=== PATIENT | male | born 1980 | race Caucasian/White ===

== ENCOUNTER 2024-05-21 21:55 | Emergency (ER) | payer OTHER, SELFPAY ==
--- OUTSIDE RECORDS SUMMARY | 2024-05-21 21:57 | XMS_ITS | Clinical Summary ---
Author Organization [employer] [facility] Address [address] [place] [id number] Care Team Providers Care Vibration Engineer Name Role Phone VotelArsenio MD Primary Care Provider + Allergies No known active allergies Medications No known medications Social History Tobacco Use Types Packs/Day Years Used Date Smoking Tobacco: Former Tobacco Cessation:Counseling Given: Yes Alcohol Use Standard Drinks/Week Comments Yes 0 (1 standard drink = 0.6 oz pur e alcohol) Sex and Gender Information Value Date Recorded Sex Assigned at Not on file Legal Sex Male 9:59 AM CDT Gender Identity Not on file Sexual Orientation Not on file Obstetrics History Last Filed Vital Signs Vital Sign Reading Time Taken Comments Blood Pressure 131/87 12/03/2015 7:47 AM CDT Pulse 72 12/03/2015 7:45 AM CDT Temperature 36.9 C (98.4 F) 12/03/2015 7:45 AM CDT Respiratory Rate - - Oxygen Saturation 96% 12/03/2015 7:45 AM CDT Inhaled Oxygen Concentration - - Weight 80.2 kg (176 lb 12.8 oz) 12/03/2015 7:45 AM CDT Height 167 cm (5' 5.75) 12/03/2015 7:45 AM CDT Body Mass Index 28.76 12/03/2015 7:45 AM CDT Plan of Treatment Health Maintenance Due Date Last Done Comments Tdap 1993 Depression screening for age 12+ 1994 HIV for age 15-65 1997 Hepatitis C screening for ag e 18-79 2000 Tetanus booster 2002 BMI (ht and wt on same day) for age 18+ 12/02/2016 12/03/2015 Lipids for age 35-44 2017 COVID-19 vaccine series (2023-25 season) 2023 Influenza Vaccine (#1) 2023 Pneumococcal series for age 6-49 Aged Out No longer eligible based on patient's age to complete this topic Insurance ERICA GIANG [id number] Care Teams Vibration Engineer Relationship Specialty Start Date End Date Votel, Arsenio Trujillo MD [address] [facility] [place] [id number] PCP - General Family Practice 11/26/15
[2024-05-21 22:04] VITALS: BP 173/126; PULSE 100; RESP 18; TEMP 36.4; O2SAT 97; BMI 28.7
[2024-05-21] MEDS: OXYMETAZOLINE 0.05% NASAL SPRAY 1 SPRAY NOSTRIL-B (23:49)
--- NOTE | 2024-05-21 23:51 | ED.EPISTAXIS ---
History of Present Illness General Date Seen: 05/21/24 Chief Complaint: Epistaxis/Nosebleed Stated Complaint: nosebleed Time Seen by Provider: 05/21/24 23:48 Source: patient and family Mode of arrival: ambulatory Limitations: no limitations History of Present Illness HPI Narrative: Patient reports here with left-sided neck bleeding out of his nares, it is bleeding on and off all day, started again at 8:00 a.m. tonight, he has used a little bit of a pack up with nose and currently is not bleeding. Reports that it does this in the spring and fall, likely due to allergies or dry spring weather no history of trauma, he is on no anticoagulants, no other Location: Yes left naris Onset/current episode: Yes hour(s) Duration: Yes intermittent and Yes now resolved Context: Yes history of previous nose bleed Treatment prior to arrival: Yes head leaning forward and Yes stuff nose with tissue Related Data Home Medications ?Medication ?Instructions ?Recorded ?Confirmed No Known Home Medications 11/12/21 11/12/21 Allergies Allergy/AdvReac Type Severity Reaction Status Date / Time No Known Drug Allergies Allergy Verified 11/12/21 12:30 Review of Systems Status of ROS: Reports: 10 or more systems reviewed and unremarkable except as noted in History and below PFSH PFS Social History Smoking Status: Current every day smoker Exam Narrative: Exam Narrative: On examination he is in no apparent distress there is some dry blood in his left nares and also right, I do not see any evidence of trauma, no evidence of it septal hematoma or other issue. Two shots Afrin a 2 x 2 along with a nasal clip and there is no absolute bleeding. No evidence of anything I could cauterize. Const: Vital Signs, click to edit/add: Vital Signs - 24 hr 05/21/24 22:04 Temperature 97.6 F Pulse Rate [Left P ulse Oximeter] 100 Respiratory Rate 18 Blood Pressure [Ri ght Upper Arm] 173/126 H Pulse Oximetry 97 Oxygen Delivery Me thod Room Air Documenting provider has reviewed patient's vital signs: yes Course Course ED Course: I discussed with him that we can certainly put a nasal pack in his nose but this certainly for someone who is not currently bleeding I am not sure this is in his best interest. Would rather him just use the nasal clips along with some Afrin, and then follow-up with ENT of ongoing symptoms where they can cauterize this. He was very comfortable with this plan. Vital Signs Vital signs: Initial Vital Signs Temperature 97.6 F 05/21/24 22:04 Temperature Source Temporal Artery Scan 05/21/24 22:04 Pulse Rate 100 05/21/24 22:04 Pulse Rhythm Regular 05/21/24 22:04 Respiratory Rate 18 05/21/24 22:04 Blood Pressure 173/126 H 05/21/24 22:04 Blood Pressure Mean 141 H 05/21/24 22:04 Blood Pressure Position Sitting 05/21/24 22:04 Pulse Oximetry 97 05/21/24 22:04 Oxygen Delivery Method Room Air 05/21/24 22:04 Vital Signs Temperature 97.6 F 05/21/24 22:04 Pulse Rate 100 05/21/24 22:04 Respiratory Rate 18 05/21/24 22:04 Blood Pressure 173/126 H 05/21/24 22:04 Pulse Oximetry 97 05/21/24 22:04 Oxygen Delivery Method Room Air 05/21/24 22:04 Temperature 97.6 F 05/21/24 22:04 Pulse Rate 100 05/21/24 22:04 Respiratory Rate 18 05/21/24 22:04 Blood Pressure 173/126 H 05/21/24 22:04 Pulse Oximetry 97 05/21/24 22:04 Oxygen Delivery Method Room Air 05/21/24 22:04 Medications Administered Medications: Generic Name Dose Route Start Last Admin Trade Name Freq PRN Reason Stop Dose Admin Oxymetazoline HCl 1 spray 05/21/24 23:48 05/21/24 23:49 Oxymetazoline 0.05% Nasal [place] NOSTRIL-B 1 spray BID PRN Administration MDM - Epistaxis Differential Diagnosis Differential diagnosis: Likely nasal bone fracture and anterior epistaxis Medical Records Attestation: I reviewed the patient's medical records. Discharge Plan Discharge Clinical Impression: Epistaxis Patient Disposition: Home w/ Parent or Adult Condition: Stable Instructions: Nosebleed (ED) Additional Instructions: Home rest use the Afrin, he can use this up for a couple days, and also use the nasal clips. Follow-up with ENT if ongoing signs or symptoms or worsening bleeding come back and we will use large pack in your nose. No evidence of current Activity Level: Light activity Discharge Diet: Regular Prescriptions: No Action No Known Home Medications Follow Up/Referrals: Julius Sainz MD [Staff Physician] - Stand Alone Forms: [employer] Info Instructions
--- OUTSIDE RECORDS SUMMARY | 2024-05-22 00:01 | XMS_ITS | Clinical Summary ---
Author Organization [employer] [facility] Address [address] [place] [id number] Care Team Providers Care Instructional Paraprofessional Name Role Phone VotelArsenio MD Primary Care [...] to complete this topic Insurance ERICA GIANG [id number] Care Teams Instructional Paraprofessional Relationship Specialty Start Date End Date Votel, Arsenio Trujillo MD [address] [facility] [place] [id number] PCP - General Family Practice 11/26/15
== END 2024-05-22 00:23 | disposition home or self-care (01) ==
LOC: ED 23:59
PROVIDERS: Emergency Provider Family Medicine
DX: R04.0 Epistaxis (principal)
CPT/HCPCS: 99282; 99283